=== PATIENT | female | born 1975 | race Caucasian/White ===

== ENCOUNTER 2016-11-21 12:17 | Emergency (ER) | payer OTHER ==
[~2016-11-21] VITALS: Ht 154.9 cm; Wt 54.4 kg
[~2016-11-21 12:17] MED LIST: LISI1TAB PO; SIMV10TA2 PO; ZOLP5TAB2 PO
[2016-11-21 12:18] VITALS: BP_SYST 138
[2016-11-21] MEDS ORDERED: NACL 0.9% 1,000 ML IV ONE (12:25)
[2016-11-21] MEDS ORDERED: ONDANSETRON HCL 4 MG/2 ML VIAL IVP ONE (12:30)
[2016-11-21] MEDS ORDERED: KETOROLAC TROMETHAMINE 30 MG VIAL IVP ONE (12:30)
[2016-11-21 12:58] LABS: CALCIUM 8.1 mg/dL (8.4-11.0); CREATININE 0.81 mg/dL (0.55-1.30); POTASSIUM 3.9 mmol/L (3.5-5.1)
[2016-11-21 13:03] LABS: ALBUMIN 3.5 g/dL (3.4-4.8); BASOPHILS # (AUTO) 0.1 K/uL (0.0-0.2); EOSINOPHILS # (AUTO) 0.1 K/uL (0.0-0.4); EOSINOPHILS % (AUTO) 1.8 % (0.0-4.0); HEMATOCRIT 38.4 % (36-48); LYMPHOCYTES # (AUTO) 2.1 K/uL (1.0-5.5); LYMPHOCYTES % (AUTO) 38.3 % (20.5-51.5); MEAN CORPUSCULAR HEMOGLOBIN 33 pg (27-31); MEAN CORPUSCULAR HGB CONC 34 % (32-36); MEAN CORPUSCULAR VOLUME 98 fL (79.0-98.0); MONOCYTES # (AUTO) 0.6 K/uL (0.0-1.0); MONOCYTES % (AUTO) 10.8 % (1.7-9.3); NEUTROPHILS # (AUTO) 2.5 K/uL (1.8-7.7); NEUTROPHILS % (AUTO) 48.1 % (40.0-70.0); PLATELET COUNT (AUTO) 259 K/uL (130-430); RED BLOOD CELL COUNT(AUTO) 3.92 MIL/uL (4.2-6.2); RED CELL DISTRIBUTION WIDTH 12.9 % (9.0-15.0); TOTAL BILIRUBIN 0.7 mg/dL (0.0-1.0); TOTAL PROTEIN, SERUM 6.8 g/dL (6.4-8.3); WHITE BLOOD COUNT (AUTO) 5.4 K/uL (4.8-10.8)
[2016-11-21 13:04] LABS: BILIRUBIN,URINE NEGATIVE (NEGATIVE); BLOOD, URINE NEGATIVE (NEGATIVE); CLARITY/URINE CLEAR (CLEAR); COLOR,URINE YELLOW (YELLOW); GLUCOSE,URINE NEGATIVE (NEGATIVE); KETONES,URINE NEGATIVE (NEGATIVE); LEUKOCYTE ESTERASE ,URINE NEGATIVE (NEGATIVE); NITRITE, URINE NEGATIVE (NEGATIVE); PROTEIN URINE NEGATIVE (NEGATIVE); UROBILINOGEN,URINE 0.2 (0.2-1.0)
[2016-11-21 14:52] VITALS: BP_SYST 123
== END 2016-11-21 14:54 | disposition home or self-care (01) ==
LOC: SED 12:17
DX: R10.9 Unspecified abdominal pain (principal); R30.0 Dysuria; I10 Essential (primary) hypertension; Z88.0 Allergy status to penicillin; Z88.6 Allergy status to analgesic agent; Z91.040 Latex allergy status; Z90.89 Acquired absence of other organs; Z90.710 Acquired absence of both cervix and uterus
CPT/HCPCS: 36415; 74176; 80053; 81003; 82150; 83690; 85025; 96361; 96374; 96375; 99285; J1885; J2405; J7030

== ENCOUNTER 2023-09-01 16:11 | Emergency (ER) | payer BC ==
[~2023-09-01] VITALS: Ht 160 cm; Wt 60.3 kg
[~2023-09-01 16:11] MED LIST changes: +NAPR-688 PO; +SIMV-341 PO; -SIMV10TA2 PO
[2023-09-01 16:45] VITALS: BP_SYST 131; PULSE 86; RESP 18; TEMP 98; O2SAT 98
[2023-09-01 17:25] LABS: BASOPHILS # (AUTO) 0.1 K/uL (0.0-0.2); BASOPHILS % (AUTO) 0.9 % (0.0-2.0); EOSINOPHILS # (AUTO) 0.1 K/uL (0.0-0.4); EOSINOPHILS % (AUTO) 1.7 % (0.0-4.0); HEMATOCRIT 40.7 % (36-48); HEMOGLOBIN 14.1 g/dL (12.0-16.0); LYMPHOCYTES # (AUTO) 2.3 K/uL (1.0-5.5); LYMPHOCYTES % (AUTO) 36.4 % (20.5-51.5); MEAN CORPUSCULAR HEMOGLOBIN 35 pg (27-31); MEAN CORPUSCULAR HGB CONC 35 % (32-36); MEAN CORPUSCULAR VOLUME 101 fL (79.0-98.0); MONOCYTES # (AUTO) 0.5 K/uL (0.0-1.0); MONOCYTES % (AUTO) 8.4 % (1.7-9.3); NEUTROPHILS # (AUTO) 3.3 K/uL (1.8-7.7); NEUTROPHILS % (AUTO) 52.6 % (40.0-70.0); PLATELET COUNT (AUTO) 230 K/uL (130-430); RED BLOOD CELL COUNT(AUTO) 4.02 MIL/uL (4.2-6.2); RED CELL DISTRIBUTION WIDTH 14.2 % (9.0-15.0); WHITE BLOOD COUNT (AUTO) 6.3 K/uL (4.8-10.8)
[2023-09-01 17:51] LABS: ANION GAP 8 (5-15); CALCIUM 9.1 mg/dL (8.4-11.0); CARBON DIOXIDE 27 mmol/L (23-29); CHLORIDE 103 mmol/L (98-107); CREATININE 0.92 mg/dL (0.55-1.30); GFR AFRICAN AMERICAN 84 mL/min (>90); GLUCOSE 121 mg/dL (74-106); POTASSIUM 3.2 mmol/L (3.5-5.1); SODIUM SERUM 138 mmol/L (136-145); UREA NITROGEN, BLOOD 13 mg/dL (8-21)
[2023-09-01 17:52] LABS: GFR NON AFRICAN-AMERICAN 70 mL/min (>90)
[2023-09-01] MEDS: POTASSIUM CHLORIDE 20 MEQ TABLET.ER PO ONE (19:54)
[2023-09-01] MEDS: MAGNESIUM OXIDE 400 MG TABLET PO ONE (20:05)
[2023-09-01 20:09] VITALS: BP_SYST 131; PULSE 86; RESP 18; TEMP 98; O2SAT 98
== END 2023-09-01 20:09 | disposition home or self-care (01) ==
LOC: SED 16:11
DX: E87.6 Hypokalemia (principal); M79.18 Myalgia, other site; I10 Essential (primary) hypertension; Z88.0 Allergy status to penicillin; Z88.6 Allergy status to analgesic agent; Z88.1 Allergy status to other antibiotic agents; Z88.5 Allergy status to narcotic agent; Z91.040 Latex allergy status
CPT/HCPCS: 36415; 71045; 80048; 84484; 85025; 93005; 99285

== ENCOUNTER 2023-09-28 17:19 | Inpatient (IN) | payer BC ==
[~2023-09-28] VITALS: Ht 160 cm; Wt 59.9 kg
[~2023-09-28 17:19] MED LIST changes: +DEXAMETHASONE SOD PHOSPHATE 4 MG/ML VIAL ONE
[2023-09-28 17:20] VITALS: BP_SYST 147; PULSE 85; RESP 18; TEMP 97.3; O2SAT 100
[2023-09-28] MEDS: ONDANSETRON HCL 4 MG/2 ML VIAL IVP ONE (18:09)
[2023-09-28] MEDS: MORPHINE 4 MG INJ. 4 MG/ML VIAL IVP ONE (18:10)
[2023-09-28 18:13] LABS: BASOPHILS % (AUTO) 0.3 % (0.0-2.0); EOSINOPHILS # (AUTO) 0.1 K/uL (0.0-0.4); EOSINOPHILS % (AUTO) 0.8 % (0.0-4.0); HEMATOCRIT 38.4 % (36-48); HEMOGLOBIN 13.3 g/dL (12.0-16.0); LYMPHOCYTES # (AUTO) 2.2 K/uL (1.0-5.5); LYMPHOCYTES % (AUTO) 18.8 % (20.5-51.5); MEAN CORPUSCULAR HEMOGLOBIN 35 pg (27-31); MEAN CORPUSCULAR HGB CONC 35 % (32-36); MEAN CORPUSCULAR VOLUME 101 fL (79.0-98.0); MONOCYTES # (AUTO) 0.5 K/uL (0.0-1.0); MONOCYTES % (AUTO) 4.4 % (1.7-9.3); NEUTROPHILS % (AUTO) 75.7 % (40.0-70.0); PLATELET COUNT (AUTO) 218 K/uL (130-430); RED BLOOD CELL COUNT(AUTO) 3.81 MIL/uL (4.2-6.2); RED CELL DISTRIBUTION WIDTH 13.7 % (9.0-15.0); WHITE BLOOD COUNT (AUTO) 11.9 K/uL (4.8-10.8)
[2023-09-28 18:34] LABS: ALBUMIN 3.6 g/dL (3.4-4.8); BILIRUBIN,DIRECT 0.2 mg/dL (0.0-0.3); CALCIUM 8.6 mg/dL (8.4-11.0); CREATININE 0.92 mg/dL (0.55-1.30); POTASSIUM 3.4 mmol/L (3.5-5.1); TOTAL BILIRUBIN 0.9 mg/dL (0.0-1.0); TOTAL PROTEIN, SERUM 6.8 g/dL (6.4-8.3)
[2023-09-28] MEDS: MORPHINE 2 MG/ML INJ. SYRINGE IVP ONE (18:54)
[2023-09-28 19:58] LABS: BILIRUBIN,URINE NEGATIVE (NEGATIVE); BLOOD, URINE NEGATIVE (NEGATIVE); CLARITY/URINE CLEAR (CLEAR); GLUCOSE,URINE NEGATIVE (NEGATIVE); KETONES,URINE NEGATIVE (NEGATIVE); LEUKOCYTE ESTERASE ,URINE TRACE (NEGATIVE); NITRITE, URINE NEGATIVE (NEGATIVE); PH,URINE 5.5 (5.0-8.0); PROTEIN URINE NEGATIVE (NEGATIVE); UROBILINOGEN,URINE 0.2 (0.2-1.0)
[2023-09-28 19:59] LABS: COLOR,URINE STRAW (YELLOW)
[2023-09-28 20:14] LABS: BACTERIA,URINE RARE /HPF (None Seen); RBC,URINE 0-3 /HPF (0-3); WBC,URINE 0-3 /HPF (0-3)
[2023-09-28] MEDS ORDERED: MORPHINE 2 MG/ML INJ. SYRINGE IVP PRN (22:00)
[2023-09-28] MEDS ORDERED: PRO40 PO (22:08)
[2023-09-28] MEDS ORDERED: PROP10TA10 PO (22:08)
[2023-09-28] MEDS ORDERED: PIPERACILLIN/TAZOBACTAM 3.375 GM/VIAL (ZOSYN) IV ONE (22:14)
[2023-09-28] MEDS: PIPERACILLIN/TAZO 3.375 GM in NS 50 ML IV ONE (22:20)
[2023-09-28] MEDS: D5/0.45 NS 1,000 ML IV SCH (22:22)
[2023-09-28] MEDS: MORPHINE 4 MG INJ. 4 MG/ML VIAL IVP PRN (23:51)
[2023-09-29] VITALS (10 sets, daily range): BP systolic 119–144; PULSE 72–98; RESP 18–20; TEMP 97.8–98.8; O2SAT 94–99
[2023-09-29] MEDS: ONDANSETRON HCL 4 MG/2 ML VIAL IVP PRN (06:50)
[2023-09-29 09:54] LABS: PROTHROMBIN TIME 10.2 SECS (9.5-12.5)
[2023-09-29] MEDS ORDERED: NALOXONE HCL 0.4 MG/ML AMP (NARCAN) IVP PRN (10:30)
[2023-09-29] MEDS: MORPHINE 4 MG INJ. 4 MG/ML VIAL IVP PRN (11:24)
[2023-09-29] MEDS: PIPERACILLIN/TAZO 3.375/DEX-IS 50 ML IV SCH (11:39)
[2023-09-29] MEDS ORDERED: ACETAMINOPHEN I.V. 1000 MG 100 ML IV ONE (16:26)
[2023-09-29] MEDS ORDERED: ONDANSETRON HCL 4 MG/2 ML VIAL IVP PRN ×2 (17:15→17:45)
[2023-09-29] MEDS ORDERED: LR 1,000 ML IV SCH (17:15)
[2023-09-29] MEDS ORDERED: D5/0.45 NS 1,000 ML IV SCH (17:45)
[2023-09-29] MEDS: ONDANSETRON HCL 4 MG/2 ML VIAL ONE (19:06)
[2023-09-29] MEDS: MORPHINE 2 MG/ML INJ. SYRINGE IVP ONE (19:23)
[2023-09-29] MEDS: MORPHINE 2 MG/ML INJ. SYRINGE IVP PRN (21:21)
[2023-09-29] MEDS: LORazepam 2 MG/ML VIAL IVP PRN (21:26)
[2023-09-30] VITALS: BP_SYST 118; PULSE 68; RESP 18; TEMP 97.9; O2SAT 98
[2023-09-30] MEDS: PIPERACILLIN/TAZOBACTAM 3.375 GM/VIAL (ZOSYN) IV ONE (00:38)
[2023-09-30] MEDS: KETOROLAC TROMETHAMINE 30 MG VIAL IVP PRN (01:02)
[2023-09-30 05:34] LABS: BASOPHILS % (AUTO) 0.1 % (0.0-2.0); HEMOGLOBIN 12.1 g/dL (12.0-16.0); LYMPHOCYTES # (AUTO) 0.9 K/uL (1.0-5.5); LYMPHOCYTES % (AUTO) 14.7 % (20.5-51.5); MEAN CORPUSCULAR HEMOGLOBIN 35 pg (27-31); MEAN CORPUSCULAR HGB CONC 35 % (32-36); MEAN CORPUSCULAR VOLUME 102 fL (79.0-98.0); MONOCYTES # (AUTO) 0.3 K/uL (0.0-1.0); MONOCYTES % (AUTO) 5.2 % (1.7-9.3); NEUTROPHILS # (AUTO) 4.8 K/uL (1.8-7.7); PLATELET COUNT (AUTO) 191 K/uL (130-430); RED BLOOD CELL COUNT(AUTO) 3.43 MIL/uL (4.2-6.2); RED CELL DISTRIBUTION WIDTH 13.9 % (9.0-15.0)
[2023-09-30 06:11] LABS: ALBUMIN 2.6 g/dL (3.4-4.8); CALCIUM 7.9 mg/dL (8.4-11.0); CREATININE 0.86 mg/dL (0.55-1.30); POTASSIUM 3.9 mmol/L (3.5-5.1); TOTAL PROTEIN, SERUM 5.8 g/dL (6.4-8.3)
[2023-09-30 08:00] VITALS: BP_SYST 126; PULSE 68; RESP 18; TEMP 97.6; O2SAT 98
[2023-09-30 12:32] VITALS: BP_SYST 115; PULSE 74; RESP 18; TEMP 97.3; O2SAT 99
[2023-09-30 16:45] VITALS: BP_SYST 136; PULSE 78; RESP 18; O2SAT 99
[2023-09-30 20:00] VITALS: BP_SYST 154; PULSE 78; RESP 18; TEMP 97.4; O2SAT 100
[2023-10-01] VITALS: BP_SYST 128; PULSE 69; RESP 18; TEMP 97.9; O2SAT 100
[2023-10-01] MEDS ORDERED: HYDROcodone/ACETAMIN 5-325 MG TAB (NORCO/ VICODIN) PO PRN (00:15)
[2023-10-01] MEDS: ONDANSETRON HCL 4 MG/2 ML VIAL IVP PRN (00:33)
[2023-10-01] MEDS: HYDROcodone/ACETAMIN 10-325 MG TAB PO PRN (00:34)
[2023-10-01 06:20] LABS: BASOPHILS % (AUTO) 0.3 % (0.0-2.0); EOSINOPHILS # (AUTO) 0.1 K/uL (0.0-0.4); HEMATOCRIT 31.3 % (36-48); HEMOGLOBIN 10.8 g/dL (12.0-16.0); LYMPHOCYTES # (AUTO) 2.9 K/uL (1.0-5.5); LYMPHOCYTES % (AUTO) 44.7 % (20.5-51.5); MEAN CORPUSCULAR HEMOGLOBIN 35 pg (27-31); MEAN CORPUSCULAR HGB CONC 34 % (32-36); MEAN CORPUSCULAR VOLUME 103 fL (79.0-98.0); MONOCYTES # (AUTO) 0.7 K/uL (0.0-1.0); MONOCYTES % (AUTO) 10.6 % (1.7-9.3); NEUTROPHILS # (AUTO) 2.8 K/uL (1.8-7.7); NEUTROPHILS % (AUTO) 42.4 % (40.0-70.0); PLATELET COUNT (AUTO) 179 K/uL (130-430); RED BLOOD CELL COUNT(AUTO) 3.05 MIL/uL (4.2-6.2); RED CELL DISTRIBUTION WIDTH 13.8 % (9.0-15.0); WHITE BLOOD COUNT (AUTO) 6.5 K/uL (4.8-10.8)
[2023-10-01 06:23] LABS: ERYTHROCYTE SEDIMENTATION RATE 2 MM/HR (0-20)
[2023-10-01 06:27] LABS: CALCIUM 7.4 mg/dL (8.4-11.0); CREATININE 0.91 mg/dL (0.55-1.30); POTASSIUM 3.3 mmol/L (3.5-5.1)
[2023-10-01 08:00] VITALS: BP_SYST 133; PULSE 67; RESP 16; TEMP 97.7; O2SAT 99
[2023-10-01 11:53] VITALS: BP_SYST 149; PULSE 71; RESP 18; TEMP 98.2; O2SAT 99
[2023-10-01] MEDS: POTASSIUM CHLORIDE 20 MEQ TABLET.ER PO ONE (13:42)
[2023-10-01] MEDS ORDERED: NALOXONE HCL 0.4 MG/ML AMP (NARCAN) IVP PRN (13:45)
[2023-10-01] MEDS ORDERED: MORPHINE 2 MG/ML INJ. SYRINGE IVP PRN (13:45)
[2023-10-01] MEDS ORDERED: traMADol HCL HCL 50 MG TABLET (ULTRAM) PO PRN ×2 (13:45)
[2023-10-01] MEDS: PROPRANOLOL HCL 10 MG TABLET (INDERAL) PO ONE (13:46)
[2023-10-01 20:00] VITALS: BP_SYST 136; PULSE 67; RESP 18; TEMP 98; O2SAT 99
[2023-10-01] MEDS: DOCUSATE SODIUM 100 MG CAPSULE PO SCH (21:36)
[2023-10-01] MEDS: ZOLPIDEM TARTRATE 5 MG TABLET PO PRN (21:37)
[2023-10-01] MEDS: FAMOTIDINE 20 MG TABLET PO SCH (23:54)
[2023-10-02 00:11] VITALS: BP_SYST 122; PULSE 81; RESP 18; TEMP 97.5; O2SAT 97
[2023-10-02 06:53] LABS: BASOPHILS % (AUTO) 0.5 % (0.0-2.0); EOSINOPHILS # (AUTO) 0.2 K/uL (0.0-0.4); EOSINOPHILS % (AUTO) 3.6 % (0.0-4.0); HEMATOCRIT 35.1 % (36-48); HEMOGLOBIN 11.9 g/dL (12.0-16.0); LYMPHOCYTES # (AUTO) 2.4 K/uL (1.0-5.5); LYMPHOCYTES % (AUTO) 43.5 % (20.5-51.5); MEAN CORPUSCULAR HEMOGLOBIN 35 pg (27-31); MEAN CORPUSCULAR HGB CONC 34 % (32-36); MEAN CORPUSCULAR VOLUME 103 fL (79.0-98.0); MONOCYTES # (AUTO) 0.6 K/uL (0.0-1.0); MONOCYTES % (AUTO) 11.1 % (1.7-9.3); NEUTROPHILS # (AUTO) 2.3 K/uL (1.8-7.7); NEUTROPHILS % (AUTO) 41.3 % (40.0-70.0); PLATELET COUNT (AUTO) 209 K/uL (130-430); RED BLOOD CELL COUNT(AUTO) 3.41 MIL/uL (4.2-6.2); WHITE BLOOD COUNT (AUTO) 5.6 K/uL (4.8-10.8)
[2023-10-02 07:18] LABS: CALCIUM 8.1 mg/dL (8.4-11.0); CREATININE 0.86 mg/dL (0.55-1.30); POTASSIUM 3.9 mmol/L (3.5-5.1)
[2023-10-02 07:40] LABS: ERYTHROCYTE SEDIMENTATION RATE 8 MM/HR (0-20)
[2023-10-02 08:50] VITALS: BP_SYST 126; PULSE 62; RESP 16; TEMP 97.2; O2SAT 98
[2023-10-02] MEDS: PROPRANOLOL HCL 10 MG TABLET (INDERAL) PO SCH (09:32)
[2023-10-02 12:11] VITALS: BP_SYST 130; PULSE 63; RESP 16; TEMP 98; O2SAT 98
[2023-10-02] MEDS ORDERED: TRAM50TA2 PO (13:54)
[2023-10-02] MEDS ORDERED: DOCU-144 PO (13:54)
[2023-10-02 14:33] VITALS: BP_SYST 130; PULSE 63; RESP 16; TEMP 98; O2SAT 98
== END 2023-10-02 15:15 | disposition home or self-care (01) | DRG 397 ==
LOC: SED 17:19 → SMU 21:56
PROVIDERS: ADMIT Preventive Medicine Preventive Medicine/Occupational Environmental Medicine; ATTEND Preventive Medicine Preventive Medicine/Occupational Environmental Medicine
PROC: 3E1M48Z Irrigation of Peritoneal Cavity using Irrigating Substance, Percutaneous Endoscopic Approach (ICD-10-PCS; 2023-09-29)
PROC: 0DTJ4ZZ Resection of Appendix, Percutaneous Endoscopic Approach (ICD-10-PCS; principal; 2023-09-29 16:45)
DX: K35.80 Unspecified acute appendicitis (principal); E43 Unspecified severe protein-calorie malnutrition; E87.1 Hypo-osmolality and hyponatremia; D64.9 Anemia, unspecified; E83.51 Hypocalcemia; E78.5 Hyperlipidemia, unspecified; N73.6 Female pelvic peritoneal adhesions (postinfective); K66.0 Peritoneal adhesions (postprocedural) (postinfection); I10 Essential (primary) hypertension; E88.09 Other disorders of plasma-protein metabolism, not elsewhere classified; E87.6 Hypokalemia; Z86.16 Personal history of COVID-19; Z90.710 Acquired absence of both cervix and uterus; Z88.0 Allergy status to penicillin; Z88.6 Allergy status to analgesic agent; Z88.5 Allergy status to narcotic agent; Z91.040 Latex allergy status; Z79.899 Other long term (current) drug therapy; Z68.23 Body mass index [BMI] 23.0-23.9, adult
CPT/HCPCS: 36415; 80048; 80053; 80076; 81000; 81001; 81015; 83690; 84484; 84702; 85025; 85610; 85651; 85730; 87070; 87075; 87081; 87086; 88304; 93005; 96365; 96375; 96376; 99285; J0131; J1100; J1885; J2060; J2270; J2405; J2543; J3010; J3465; J3490; J7120; J8597